=== PATIENT | male | born 1960 ===

== ENCOUNTER 2023-09-01 09:00 | Outpatient (CLI) | payer OTHER | END 2023-09-01 09:19 | disposition home or self-care (01) | LOC: TOM 09:00 | PROVIDERS: ATTEND Internal Medicine | DX: R10.9 Unspecified abdominal pain (principal) ==

== ENCOUNTER 2023-12-19 09:39 | Outpatient (CLI) | payer OTHER | END 2023-12-19 09:47 | disposition home or self-care (01) | LOC: SONOGRAMA 09:39 | PROVIDERS: ATTEND Internal Medicine | DX: N40.0 Benign prostatic hyperplasia without lower urinary tract symptoms (principal); R31.9 Hematuria, unspecified ==